=== PATIENT | female | born 1965 | race Caucasian/White ===

== ENCOUNTER → 2018-12-04 | Outpatient (CLI) | payer BC ==
--- NOTE | 2018-12-04 11:57 | RADIOLOGY REPORT (SQ) ---
EXAM DESCRIPTION: MRI CERVICAL SPINE WITHOUT COMPLETED DATE/TIME: 12/04/2018 11:43 am REASON FOR STUDY: SPINAL STENOSIS, CERVICAL REGION M48.02 SPINAL STENOSIS, CERVICAL REGION COMPARISON: Thoracic spine plain films 11/29/[address] 11/29/2018 TECHNIQUE: Sagittal and Axial imaging includes T1, T2, STIR and gradient echo sequences. LIMITATIONS: Mild motion artifact on the axial images FINDINGS: ALIGNMENT: Reversal of cervical curvature with mild anterolisthesis of C2 over C3, C3 over C4, and C4 over C5. VERTEBRAE: Intact. BONE MARROW: Extensive vertebral body sclerotic and fatty endplate changes throughout the cervical sp ine DISCS: Diffuse degenerative disc changes with decreased T2 weighted intervertebral disc signal and di sc space loss throughout the cervical spine HARDWARE: None in the spine. CORD AND BASE OF BRAIN: Normal in size and signal intensity. SOFT TISSUES: No soft tissue masses. C1-C2: No significant spinal stenosis. C2-C3: Disc space loss of height is present with reactive vertebral body endplate changes. Very bulk y right-sided facet arthropathy. Broad diffuse posterior disc bulge and bony spurring right greater than left. These findings cause mild central canal narrowing with effacement of the CSF around the r ightward ventral cord and mild rightward cord flattening without abnormal intrinsic cord signal. Hig h-grade right, moderate left foraminal narrowing is present. C3-C4: Broad diffuse posterior disc bulging partly effaces the ventral thecal sac and abuts the ventr al cord without cord flattening or abnormal intrinsic cord signal. Borderline central canal narrowin g. Bulky bilateral facet hypertrophy left greater than right is present with bilateral high-grade fo raminal narrowing. C4-C5: Broad diffuse posterior disc bulge and bony spurring partly effaces the ventral thecal sac wit hout cord flattening or abnormal intrinsic cord signal. No central stenosis or significant right for aminal narrowing. Moderate left foraminal narrowing from facet hypertrophy. C5-C6: Broad diffuse posterior disc bulge and bony spurring effaces the ventral thecal sac and abuts the ventral cord without cord flattening or abnormal intrinsic cord signal. Borderline central canal narrowing. High-grade right, moderate left foraminal narrowing. C6-C7: Broad diffuse posterior disc bulge and bony spurring is present partly effacing the ventral th ecal sac and abutting the ventral cord with minimal cord flattening. No abnormal intrinsic cord sign al. Mild central canal narrowing is present. There is moderate right and high-grade left foraminal narrowing from facet and uncovertebral hypertrophy. C7-T1: Mild bilateral foraminal narrowing from facet hypertrophy. No central stenosis UPPER THORACIC: Mild bilateral T1-2 from facet and uncovertebral hypertrophy. OTHER: No other significant finding. IMPRESSION: Multilevel high-grade foraminal narrowing, significant multilevel degenerative disc escobedo ges throughout the cervical spine TECHNICAL DOCUMENTATION: JOB ID: [id number] [employer]- All Rights Reserved Reading location - IP/workstation name: [email or web address]
== END ==
LOC: RAD 10:56
PROVIDERS: ATTEND Internal Medicine
DX: M48.02 Spinal stenosis, cervical region (principal)
CPT/HCPCS: 72141

== ENCOUNTER → 2019-02-25 | Outpatient (CLI) | payer BC ==
[2019-02-25 11:15] LABS: ABSOLUTE BASOPHILS # (AUTO) 0.1 10^3/uL (0.0-0.2); ABSOLUTE EOSINOPHILS # (AUTO) 0.3 10^3/uL (0.0-0.6); ABSOLUTE LYMPHOCYTES (AUTO) 3.4 10^3/uL (0.5-4.7); ABSOLUTE MONOCYTES (AUTO) 0.5 10^3/uL (0.1-1.4); ABSOLUTE NEUT (AUTO) 4.2 10^3/uL (1.7-8.2); BASOPHILS % (AUTO) 1.1 % (0-2); EOSINOPHILS % (AUTO) 3.4 % (0-6); HEMATOCRIT 40.4 % (36.0-47.0); HEMOGLOBIN 13.5 g/dL (12.0-15.5); LYMPHOCYTES % (AUTO) 40.1 % (13-45); MEAN CORPUSCULAR HEMOGLOBIN 30.5 pg (27.0-33.4); MEAN CORPUSCULAR HGB CONC 33.3 g/dL (32.0-36.0); MEAN CORPUSCULAR VOLUME 91 fl (80-97); MONOCYTES % (AUTO) 6.3 % (3-13); PLATELET COUNT 313 10^3/uL (150-450); RED BLOOD COUNT 4.43 10^6/uL (3.72-5.28); RED CELL DISTRIBUTION WIDTH 13.6 % (11.5-14.0); SEGMENTED NEUTROPHILS % (AUTO) 49.1 % (42-78); TOTAL CELLS COUNTED % (AUTO) 100 %; WHITE BLOOD COUNT 8.5 10^3/uL (4.0-10.5)
[2019-02-25 11:28] LABS: APPEARANCE,URINE CLEAR; BILIRUBIN,URINE NEGATIVE (NEGATIVE); COLOR,URINE YELLOW; GLUCOSE, URINE NEGATIVE (NEGATIVE); KETONES,URINE NEGATIVE (NEGATIVE); LEUKOCYTE ESTERASE,URINE SMALL (NEGATIVE); NITRITE,URINE NEGATIVE (NEGATIVE); PROTEIN,URINE NEGATIVE (NEGATIVE); URINE SPECIFIC GRAVITY 1.017; UROBILINOGEN,URINE NEGATIVE mg/dL (<2.0)
[2019-02-25 11:37] LABS: ALANINE AMINOTRANSFERASE 18 U/L (9-52); ALBUMIN 4.5 g/dL (3.5-5.0); ALKALINE PHOSPHATASE 56 U/L (38-126); ANION GAP 11 (5-19); ASPARTATE AMINO TRANSFERASE 21 U/L (14-36); BILIRUBIN,DIRECT 0.3 mg/dL (0.0-0.4); BILIRUBIN,TOTAL 0.4 mg/dL (0.2-1.3); BLOOD UREA NITROGEN 17 mg/dL (7-20); CALCIUM 9.5 mg/dL (8.4-10.2); CARBON DIOXIDE 26 mmol/L (22-30); CHLORIDE 104 mmol/L (98-107); GLUCOSE 116 mg/dL (75-110); POTASSIUM 4.4 mmol/L (3.6-5.0); TOTAL PROTEIN 7.5 g/dL (6.3-8.2); TRIGLYCERIDES 282 mg/dL (<150)
[2019-02-25 11:47] LABS: DIRECT LDL 162 mg/dL (<100)
[2019-02-25 11:54] LABS: VLDL CHOLESTEROL 56.4 mg/dL (10-31)
== END ==
LOC: LAB 10:57
PROVIDERS: ATTEND Internal Medicine
DX: D64.9 Anemia, unspecified (principal); E05.90 Thyrotoxicosis, unspecified without thyrotoxic crisis or storm; N39.0 Urinary tract infection, site not specified; R10.9 Unspecified abdominal pain; E78.5 Hyperlipidemia, unspecified
CPT/HCPCS: 36415; 80053; 80061; 81001; 84443; 85025